=== PATIENT | female | born 1990 | race Hispanic/Latino ===

== ENCOUNTER 2017-12-25 10:18 | Outpatient (CLI) | payer OTHER | END 2017-12-25 10:19 | disposition home or self-care (01) | LOC: BICMRI 10:18 | PROVIDERS: ATTEND Orthopaedic Surgery Hand Surgery | DX: M54.12 Radiculopathy, cervical region (principal) | CPT/HCPCS: 72141 ==

== ENCOUNTER 2018-02-04 08:53 | Outpatient (CLI) | payer OTHER ==
--- NOTE | 2018-02-04 11:01 | CT ---
CT BRAIN NONCONTRAST: Date: 02/04/18 HISTORY: 28-year-old female with headache, R51. FINDINGS: There is no midline shift or any other mass effect. There is no evidence of acute intracranial hemor rhage, large cortical infarct, obstructive hydrocephalus, or extraaxial fluid collection. The calvar ium is intact. The cerebellar tonsils protrude at least slightly inferior to the foramen magnum. The inferior aspect of the posterior fossa appears crowded. Bilateral tympanomastoid cavities, and the upper portions of paranasal sinuses, appear grossly clear. IMPRESSION: 1. No acute intracranial findings. 2. Questionable Chiari I malformation. Recommend noncontrast MRI of either the cervical spine or the brain (Attention veterinary technologist: Add T2-weighted sagittal sequence of brain). cydney fregoso POS: [facility]
== END 2018-02-04 08:54 | disposition home or self-care (01) ==
LOC: CT 08:53
PROVIDERS: ATTEND Internal Medicine Infectious Disease
DX: R51 Headache (principal)
CPT/HCPCS: 70450

== ENCOUNTER 2018-05-06 09:53 | Outpatient (CLI) | payer OTHER | END 2018-05-06 09:54 | disposition home or self-care (01) | LOC: BICMRI 09:53 | PROVIDERS: ATTEND Neurological Surgery | DX: G44.52 New daily persistent headache (NDPH) (principal); M54.2 Cervicalgia; M25.511 Pain in right shoulder; M25.512 Pain in left shoulder; G93.5 Compression of brain | CPT/HCPCS: 70551 ==

== ENCOUNTER 2018-05-21 12:48 | Outpatient (CLI) | payer OTHER | END 2018-05-21 12:49 | disposition home or self-care (01) | LOC: BICMRI 12:48 | PROVIDERS: ATTEND Orthopaedic Surgery Hand Surgery | DX: S43.431A Superior glenoid labrum lesion of right shoulder, initial encounter (principal); S43.432D Superior glenoid labrum lesion of left shoulder, subsequent encounter ==

== ENCOUNTER 2018-08-15 14:21 | Outpatient (CLI) | payer OTHER ==
--- NOTE | 2018-08-15 19:13 | MRI ---
LUMBAR SPINE MRI WITHOUT IV CONTRAST: HISTORY: A 28-year-old female with a history of low back pain, M54.10. TECHNIQUE: Multiplanar, multisequence MRI examination of the lumbar spine is performed. FINDINGS: There is no significant focal disk degeneration or disk herniation. No evidence for significant cent ral canal, lateral recess, or foraminal stenosis. There are some mild ligament and facet hypertrophi c changes. No abnormal marrow signal. IMPRESSION: 1. Unremarkable lumbar spine MRI. 2. No evidence for significant disk herniation, canal, lateral recess, or foraminal stenosis, abnorm al marrow signal, or other acute process. POS: [facility]
== END 2018-08-15 14:22 | disposition home or self-care (01) ==
LOC: SCSMRI 14:21
PROVIDERS: ATTEND Family Medicine
DX: M54.16 Radiculopathy, lumbar region (principal)
CPT/HCPCS: 72148

== ENCOUNTER 2018-08-20 15:06 | Outpatient (CLI) | payer OTHER ==
--- NOTE | 2018-08-20 16:53 | MRI ---
MRI OF THE THORACIC SPINE WITHOUT CONTRAST: Date; 08/20/18 INDICATION: History of chronic mid back pain for 6 months. TECHNIQUE: Multiplanar, multisequence MR images were obtained of the thoracic spine without IV contrast. Comparison made with radiographs of the thoracic spine dated 07/02/18. FINDINGS: There is very mild dextroscoliosis of the mid thoracic spine. Bone marrow signal intensity appears wi thin normal limits. Spinal alignment appears within normal limits. The thoracic spinal cord demonstra jesús a normal signal intensity and contour. No appreciable central canal or neural foraminal narrowing is demonstrated. IMPRESSION: 1. No acute fracture is demonstrated. 2. No central canal or neural foraminal narrowing demonstrated. 3. Spinal cord demonstrates a normal signal intensity and contour. POS: [facility]
== END 2018-08-20 15:07 | disposition home or self-care (01) ==
LOC: SCSMRI 15:06
PROVIDERS: ATTEND Family Medicine
DX: M54.9 Dorsalgia, unspecified (principal)
CPT/HCPCS: 72146

== ENCOUNTER 2019-03-19 13:44 | Outpatient (CLI) | payer OTHER ==
[~2019-03-19 13:44] MED LIST: Iopamidol 370 76% 100 ML VIAL ONE
--- NOTE | 2019-03-19 16:06 | CT ---
CT ABDOMEN AND PELVIS WITH ORAL AND IV CONTRAST: 03/19/19 HISTORY: 29-year-old female with abdominal pain and weight gain over the past few months. COMPARISON: 05/30/17. FINDINGS: The lung bases are clear. The liver, spleen, pancreas, adrenal glands and kidneys are normal. No calc ified gallstones are seen. No free air, free fluid, or lymphadenopathy is seen in the abdomen or pelv is. The small bowel loops are not abnormally dilated. A normal appearing appendix is present. Uterus and ovaries are visualized. There is a transitional vertebra. IMPRESSION: No significant abnormalities are identified. POS: [facility]
== END 2019-03-19 13:45 | disposition home or self-care (01) ==
LOC: CT 13:44
PROVIDERS: ATTEND Family Medicine
DX: R10.84 Generalized abdominal pain (principal)
CPT/HCPCS: 74177; Q9967